=== PATIENT | female | born 1995 | race Caucasian/White ===

== ENCOUNTER 2017-01-28 20:36 | Emergency (ER) | payer OTHER ==
[~2017-01-28] VITALS: Ht 162.6 cm; Wt 95.2 kg
[2017-01-28] MEDS ORDERED: NO MEDICATIONS (21:01)
[2017-01-28 22:31] LABS: ALBUMIN SERUM 4.4 g/dL (3.5-5.0); ALKALINE PHOSPHATASE 55 U/L (32-92); ALT (SGPT) 26 U/L (10-40); AST (SGOT) 17 U/L (10-42); BILIRUBIN,TOTAL 0.5 mg/dL (0.2-2.0); PROTEIN TOTAL SERUM 7.8 g/dL (6.0-8.3)
[2017-01-28 22:34] LABS: BILIRUBIN, DIRECT <0.1 mg/dL (0.0-0.2); BILIRUBIN,INDIRECT 0.4 mg/dL (0.0-0.9)
== END 2017-01-29 00:15 | disposition home or self-care (01) ==
LOC: SED 20:36
PROVIDERS: Nurse Practitioner
DX: S99.821A Other specified injuries of right foot, initial encounter (principal); W23.0XXA Caught, crushed, jammed, or pinched between moving objects, initial encounter; Y92.009 Unspecified place in unspecified non-institutional (private) residence as the place of occurrence of the external cause
CPT/HCPCS: 36415; 80076; 84703; 99283